=== PATIENT | female | born 1970 | race African-American/Black ===

== ENCOUNTER 2016-07-05 19:41 | Emergency (ER) | payer MEDICAID, OTHER ==
[~2016-07-05] VITALS: Ht 172.7 cm; Wt 117.9 kg
[~2016-07-05 19:41] MED LIST: NKM; NORCO 5-325 TA1 EACH ORAL; TRAMADOL HCL50 MG ORAL
[2016-07-05 20:25] VITALS: BP 132/90
[2016-07-05] MEDS ORDERED: TYLENOL EXTRA500 MG ORAL (20:36)
[2016-07-05 20:48] VITALS: BP 132/90
--- NOTE | 2016-07-05 21:37 | Emergency Room Report ---
History of Present Illness General Chief Complaint: General Complaint Source: Patient Present Illness HPI The patient is a 46-year-old female with a history of diabetes presenting with right foot pain after stepping onto a metal plug this evening. The patient states that the pain is a 7/10 dull ache it is worse with pressure. Pain does not radiate. Patient denies numbness or tingling of the foot. The patient denies prior injury to the foot. The patient denies seeing any blood. The patient denies any other symptoms Allergies: Coded Allergies: No Known Allergies (Unverified , 09/18/14) Patient History Past Medical History: see triage record, DM Pertinent Family History: none Reviewed Nursing Documentation: PMH: Agreed, PSxH: Agreed Nursing Documentation-PMH Hx Diabetes: Yes - BORDERLINE Hx Cancer: No Hx Neurological Problems: No Review of Systems All Other Systems: negative except mentioned in HPI Physical Exam Vital Signs Date Time Temp Pulse Resp B/P Pulse Ox O2 Delivery O2 Flow Rate FiO2 07/05/16 20:15 99.0 81 16 132/90 100 Room Air Sp02 EP Interpretation: reviewed, normal General Appearance: no apparent distress, alert, GCS 15, non-toxic Head: normocephalic, atraumatic Eyes: bilateral eye PERRL, bilateral eye normal inspection ENT: hearing grossly normal, normal pharynx, no angioedema, normal voice Neck: full range of motion, supple/symm/no masses Musculoskeletal: back normal, digits/nails normal, gait/station normal, normal range of motion, no calf tenderness, tender - TTP over the plantar surface mid foot Neurologic: alert, oriented x3, responsive, motor strength/tone normal, sensory intact, speech normal Psychiatric: judgement/insight normal, memory normal, mood/affect normal, no suicidal/homicidal ideation Skin: normal color, no rash, warm/dry, well hydrated, normal turgor Lymphatic: no adenopathy Medical Decision Making PA Attestation Dr. hewitt is my supervising physician. Patient management was discussed with my supervising physician Diagnostic Impression: Primary Impression: Contusion, foot ER Course The patient is a 46-year-old female with a history of diabetes presenting with right foot pain after stepping onto a metal plug this evening. DDx: contusion, abrasion, laceration, sprain PE: Vitals WNL. NAD. TTP over the plantar surface mid foot. Skin intact. SILT. Full AROM of toes and ankle. No deformity. No edema. The pt will be DC'ed home with prescription for tylenol. ER precautions given. Last Vital Signs Date Time Temp Pulse Resp B/P Pulse Ox O2 Delivery O2 Flow Rate FiO2 07/05/16 20:48 81 16 132/90 100 Room Air 07/05/16 20:25 98.9 Status: improved Disposition: HOME, SELF-CARE Condition: Improved Scripts Acetaminophen* (TYLENOL EXTRA STRENGTH*) 500 Mg Tablet 500 MG ORAL Q8H Y for Prn Headache/Temp > 101, #30 TAB 0 Refills Prov: SEVERINO PARSONS 07/05/16 Patient Instructions: Foot Contusion, MICHAELA for Routine Care of Injuries Additional Instructions: I discussed my findings with the patient. All questions and concerns have been answered. Treatment and medication compliance have been addressed. I advised the patient that they need to follow up with PMD in 3-5 days. Return to ED if pain remains or worsens, numbness or tingling occurs, new rash is noticed, fever is noticed, or if needed for any reason. Patient verbalized understanding of discharge instructions. SEVERINO PARSONS Jul 05, 2016 21:37
== END 2016-07-05 20:48 | disposition home or self-care (01) ==
LOC: EMR 20:25
DX: S90.31XA Contusion of right foot, initial encounter (principal); W22.8XXA Striking against or struck by other objects, initial encounter; Y92.9 Unspecified place or not applicable
CPT/HCPCS: 99282